=== PATIENT | male | born 1995 | race Caucasian/White ===

== ENCOUNTER 2020-10-22 14:09 | Emergency (ER) | payer OTHER, SELFPAY ==
[~2020-10-22] VITALS: Ht 167.6 cm; Wt 108.9 kg
[2020-10-22 14:15] VITALS: BP 122/85
--- NOTE | 2020-10-22 14:37 | NUR ---
Pt taken to bed 10.
--- NOTE | 2020-10-22 14:50 | NUR ---
25 Y male with c/o of SOB, chest pain, n/v, dysuria, myalise, fever/chills, and fatigue. Pt tested covid + on 10/17/20. Pt is not vacinated and has c/o of covid S/S since 10/12/20. Diminished breath sounds heard on lower lobes. S1/S2 heard upon assessment. Pt is also c/o of dysuira, lower back pain, and hesistancy for the past 2 months. PMH: sonia NKEliceo Addendum: 10/22/20 at 1546 by [email or web address] Pt also stated he smokes weed and does ketamine often
--- NOTE | 2020-10-22 15:15 | NUR ---
blood work, urine, covid ada, covid novel all collected bedside and handed to industrial laborer
--- NOTE | 2020-10-22 15:20 | NUR ---
xray bedside with pt
--- NOTE | 2020-10-22 15:33 | NUR ---
pt currently dry heaving bedside and has been provided with emesis bag
[2020-10-22 15:36] LABS: BASOPHILS % (AUTO) 0.7 % (0.0-2.0); EOSINOPHILS % (AUTO) 0.1 % (0.0-4.0); HEMATOCRIT 49.6 % (36-52); HEMOGLOBIN 16.9 g/dL (12.0-18.0); LYMPHOCYTES # (AUTO) 0.8 K/uL (2.0-11.5); LYMPHOCYTES % (AUTO) 15.6 % (20.5-51.1); MEAN CORPUSCULAR HEMOGLOBIN 34 pg (27-31); MEAN CORPUSCULAR HGB CONC 34 g/dL (33-37); MEAN CORPUSCULAR VOLUME 98.5 fL (80-94); MONOCYTES # (AUTO) 0.3 K/uL (0.8-1.0); MONOCYTES % (AUTO) 6.4 % (1.7-9.3); NEUTROPHILS # (AUTO) 4.1 K/uL (1.8-7.7); NEUTROPHILS % (AUTO) 77.2 % (42.2-75.2); PLATELET COUNT (AUTO) 130 K/uL (140-450); RED BLOOD CELL COUNT(AUTO) 5.03 MIL/uL (4.20-6.10); RED CELL DISTRIBUTION WIDTH 12.6 % (11.6-13.7); WHITE BLOOD COUNT (AUTO) 5.3 K/uL (4.8-10.8)
[2020-10-22] MEDS: NACL 0.9% 1,000 ML IV ONE (15:41)
[2020-10-22] MEDS: DEXAMETHASONE 4 MG/ML VIAL IVP ONE (15:42)
[2020-10-22] MEDS: KETOROLAC 30 MG/ML VIAL IVP ONE (15:43)
[2020-10-22] MEDS: ONDANSETRON 4 MG/2 ML VIAL IVP ONE (15:43)
[2020-10-22 15:44] LABS: APPEARANCE,URINE CLEAR (CLEAR); BILIRUBIN,URINE NEGATIVE (NEGATIVE); BLOOD, URINE NEGATIVE (NEGATIVE); COLOR,URINE YELLOW (YELLOW); LEUKOCYTE ESTERASE ,URINE NEGATIVE (NEGATIVE); NITRITE, URINE NEGATIVE (NEGATIVE); PH,URINE 5.5 (5.0-9.0); UGLUCOSE NEGATIVE (NEGATIVE)
[2020-10-22 15:47] LABS: C-REACTIVE PROTEIN QUANT 5.5 mg/dL (0.0-0.9)
[2020-10-22 15:52] LABS: ALBUMIN 4.5 g/dL (3.4-5.0); ANION GAP 14.9 (8-16); CARBON DIOXIDE 27.2 mmol/L (21-32); CREATININE 1.2 mg/dL (0.6-1.3); POTASSIUM 4.1 mmol/L (3.5-5.1); TOTAL BILIRUBIN 0.4 mg/dL (0.0-1.0)
[2020-10-22 16:08] LABS: LACTATE DEHYDROGENASE 334 U/L (85-227)
[2020-10-22] MEDS: ACETAMINOPHEN EXTRA STRENGTH 500 MG TAB PO ONE (16:25)
--- NOTE | 2020-10-22 16:29 | NUR ---
DR. SARKAR AT PT BEDSIDE FOR RE EVALUATION.
[2020-10-22] MEDS ORDERED: ALBU0.0912 IH (16:33)
[2020-10-22] MEDS ORDERED: PRED20TA5 PO (16:33)
[2020-10-22] MEDS ORDERED: AZIT250T3 PO (16:33)
[2020-10-22] MEDS ORDERED: IBUP-2213 PO (16:33)
[2020-10-22] MEDS ORDERED: BENZ-196 PO (16:33)
[2020-10-22 16:51] VITALS: BP 102/53
--- NOTE | 2020-10-22 16:52 | NUR ---
Patient discharged with v/s stable. Written and verbal after care instructions given and explained. Patient alert, oriented and verbalized understanding of instructions. Ambulatory with steady gait. All questions addressed prior to discharge. ID band removed. Patient advised to follow up with PMD. Rx of albuterol sulfate, zithromax, benzonatate, ibuprofen, and prednisone given. Patient educated on indication of medication including possible reaction and side effects. Opportunity to ask questions provided and answered.
--- NOTE | 2020-10-25 00:53 | NUR ---
Positive COVID 19 test results recived from Lab. Per lab copy of test results were given to Infection Control.
== END 2020-10-22 16:52 | disposition home or self-care (01) ==
LOC: MED 14:09
DX: U07.1 COVID-19 (principal); J12.82 Pneumonia due to coronavirus disease 2019
CPT/HCPCS: 36415; 36600; 71045; 80053; 81003; 82550; 82728; 82803; 83605; 83615; 83880; 84484; 85025; 85379; 86140; 87040; 87426; 93005; 96374; 96375; 99285; J1100; J1885; J2405; J7030; Q0092; U0003

== ENCOUNTER 2020-11-15 09:21 | Emergency (ER) | payer OTHER, SELFPAY ==
[~2020-11-15] VITALS: Ht 172.7 cm; Wt 131.5 kg
[~2020-11-15 09:21] MED LIST: ALBU0.0912 IH; AZIT250T3 PO; BENZ-196 PO; IBUP-2213 PO; PRED20TA5 PO
[2020-11-15 09:25] VITALS: BP 145/87
--- NOTE | 2020-11-15 09:29 | NUR ---
PT TO AWAIT IN TENT
--- NOTE | 2020-11-15 09:49 | NUR ---
ERMD EXAMINING PT IN TENT
--- NOTE | 2020-11-15 09:50 | NUR ---
25 Y/O MALE C/O TOOTHACHE XTODAY. PT STATES CONSTANT SHARP 10/10 PAIN. HAS NOT SEEN A DENTIST YET. PAIN HAS BEEN ONGOING FOR MONTHS, BEGAN WORSENING TODAY. STATES SWELLING, DENIES ANY BLEEDING OR DISCHARGE. MEDHX: LIZZIE PATE
[2020-11-15] MEDS ORDERED: BUPIVACAINE-MPF 0.25% 30 ML VIAL INJ ONE (09:55)
--- NOTE | 2020-11-15 10:04 | NUR ---
AMBULATED TO BED 10
[2020-11-15] MEDS ORDERED: BUPIVACAINE-MPF/EPI 0.25% 30 ML VIAL INJ ONE (10:15)
[2020-11-15] MEDS ORDERED: LIDOCAINE JELLY 2% 30 ML TUBE TP ONE (10:15)
--- NOTE | 2020-11-15 10:20 | NUR ---
PATIENT YELLING AND CURSING AT STAFF, KICKING OVER EM STAND, STATING "FUCK YOU YOU ARE NO ONE." STATING "JENNIFER BEEN WAITING PATIENTLY." SECURITY PAGED TO TALK TO PATIENT.
[2020-11-15] MEDS ORDERED: AMOX500C25 PO (11:01)
--- NOTE | 2020-11-15 11:19 | NUR ---
Patient discharged with v/s stable. Written and verbal after care instructions given and explained ABOUT TOOTH AVULSION. Patient alert, oriented and verbalized understanding of instructions. Ambulatory with steady gait. All questions addressed prior to discharge. ID band removed. Patient advised to follow up with PMD. Rx of AMOXICILLIN given. Patient educated on indication of medication including possible reaction and side effects. Opportunity to ask questions provided and answered.
== END 2020-11-15 11:19 | disposition home or self-care (01) ==
LOC: MED 09:21
DX: K08.89 Other specified disorders of teeth and supporting structures (principal); Z79.899 Other long term (current) drug therapy
CPT/HCPCS: 64400; 99284; J3490; 99283

== ENCOUNTER 2021-05-04 19:58 | Emergency (ER) | payer OTHER, SELFPAY ==
[~2021-05-04] VITALS: Ht 167.6 cm; Wt 136.1 kg
[~2021-05-04 19:58] MED LIST changes: +AMOX500C25 PO
[2021-05-04 20:10] VITALS: BP 157/90
--- NOTE | 2021-05-04 20:13 | NUR ---
TO LOBBY A/W BED AMBULATORY
[2021-05-04 20:45] LABS: BASOPHILS % (AUTO) 0.1 % (0.0-2.0); EOSINOPHILS # (AUTO) 0.3 K/uL (0-0.4); EOSINOPHILS % (AUTO) 1.8 % (0.0-4.0); HEMATOCRIT 47.6 % (36-52); HEMOGLOBIN 16.2 g/dL (12.0-18.0); LYMPHOCYTES # (AUTO) 0.6 K/uL (2.0-11.5); LYMPHOCYTES % (AUTO) 4.4 % (20.5-51.1); MEAN CORPUSCULAR HEMOGLOBIN 34 pg (27-31); MEAN CORPUSCULAR HGB CONC 34 g/dL (33-37); MEAN CORPUSCULAR VOLUME 99.4 fL (80-94); MONOCYTES # (AUTO) 0.6 K/uL (0.8-1.0); NEUTROPHILS # (AUTO) 12.6 K/uL (1.8-7.7); NEUTROPHILS % (AUTO) 89.7 % (42.2-75.2); PLATELET COUNT (AUTO) 242 K/uL (140-450); RED BLOOD CELL COUNT(AUTO) 4.79 MIL/uL (4.20-6.10); WHITE BLOOD COUNT (AUTO) 14.1 K/uL (4.8-10.8)
[2021-05-04 20:55] LABS: APPEARANCE,URINE CLEAR (CLEAR); BILIRUBIN,URINE 1+ (NEGATIVE); BLOOD, URINE NEGATIVE (NEGATIVE); LEUKOCYTE ESTERASE ,URINE NEGATIVE (NEGATIVE); NITRITE, URINE NEGATIVE (NEGATIVE); UGLUCOSE NEGATIVE (NEGATIVE)
[2021-05-04 21:04] LABS: ALBUMIN 4.9 g/dL (3.4-5.0); ANION GAP 14.5 (8-16); CARBON DIOXIDE 26.7 mmol/L (21-32); CREATININE 0.9 mg/dL (0.6-1.3); POTASSIUM 4.2 mmol/L (3.5-5.1)
[2021-05-04 21:07] LABS: COLOR,URINE AMBER (YELLOW)
[2021-05-04] MEDS ORDERED: ONDANSETRON 4 MG/2 ML VIAL IVP ONE (21:15)
[2021-05-04] MEDS ORDERED: KETOROLAC 15 MG/ML VIAL IVP ONE (21:15)
--- NOTE | 2021-05-04 22:05 | NUR ---
CALL TO BED NO RESPONSE.HE LEAVE HOME. PATIENT LEFT WITHOUT BEING SEEN BY DR. RICHARDS. NO FURTHER CARE PROVIDED FOR PATIENT.
== END 2021-05-04 22:05 | disposition left against medical advice (07) ==
LOC: MED 19:58
DX: R10.13 Epigastric pain (principal); R68.83 Chills (without fever); Z79.899 Other long term (current) drug therapy
CPT/HCPCS: 36415; 80053; 81003; 83690; 85025; 99283

== ENCOUNTER 2022-06-24 08:49 | Inpatient (IN) | payer OTHER ==
[~2022-06-24] VITALS: Ht 172.7 cm; Wt 90.7 kg
[2022-06-24 09:52] VITALS: BP 132/76
--- NOTE | 2022-06-24 09:53 | NUR ---
PATIENT AMBULATED TO BED 8.
--- NOTE | 2022-06-24 10:06 | NUR ---
PT WAS SITTING COMFORTABLY IN THE WAITING AREA AND STARTS CURSING AND CALLING NAMES AT THE REGISTRATION LADY WALKING UP TO THE COUNTER WITH STEADY GAIT NO GRIMACING OR GUARDING ABDOMEN "I'M GONNA FUCKING ELOINA EVERYBODY, I WANT TO TALK TO THE MULTIPLE DRUM SANDER OF THIS HOSPITAL RIGHT NOW!" CAUL DRESSER HAD INFORMED PT THAT WE WERE GETTING THE BED CLEANED FOR HIM BEFORE WE BRING HIM IN
[2022-06-24] MEDS ORDERED: ONDANSETRON 4 MG ODT PO ONE (10:20)
[2022-06-24] MEDS ORDERED: FAMOTIDINE 20 MG TAB PO ONE (10:20)
[2022-06-24] MEDS ORDERED: ALUMINUM HYD/MAG/SIMETHICONE 30 ML UDC PO ONE (10:20)
[2022-06-24] MEDS ORDERED: DICYCLOMINE 10 MG CAP PO ONE (10:20)
--- NOTE | 2022-06-24 10:25 | NUR ---
HAD BEEN GIVEN A SPECIMEN CUP FOR A URINE SAMPLE, PT REPLIED "WHAT DO YOU NEED MY URINE FOR? NO NEED FOR A URINE TEST"
[2022-06-24 10:45] LABS: BASOPHILS # (AUTO) 0.1 K/uL (0.00-0.22); BASOPHILS % (AUTO) 0.6 % (0.0-2.0); EOSINOPHILS # (AUTO) 0.2 K/uL (0-0.4); EOSINOPHILS % (AUTO) 2.7 % (0.0-4.0); HEMATOCRIT 44.8 % (36-52); HEMOGLOBIN 15.3 g/dL (12.0-18.0); LYMPHOCYTES # (AUTO) 1.2 K/uL (2.0-11.5); LYMPHOCYTES % (AUTO) 14.8 % (20.5-51.1); MEAN CORPUSCULAR HEMOGLOBIN 34 pg (27-31); MEAN CORPUSCULAR HGB CONC 34 g/dL (33-37); MONOCYTES # (AUTO) 0.8 K/uL (0.8-1.0); MONOCYTES % (AUTO) 9.3 % (1.7-9.3); NEUTROPHILS # (AUTO) 6.1 K/uL (1.8-7.7); NEUTROPHILS % (AUTO) 72.6 % (42.2-75.2); PLATELET COUNT (AUTO) 203 K/uL (140-450); RED BLOOD CELL COUNT(AUTO) 4.52 MIL/uL (4.20-6.10); RED CELL DISTRIBUTION WIDTH 13.1 % (11.6-13.7); WHITE BLOOD COUNT (AUTO) 8.4 K/uL (4.8-10.8)
[2022-06-24 11:08] LABS: ANION GAP 9.1 (8-16); CARBON DIOXIDE 31.7 mmol/L (21-32); POTASSIUM 3.8 mmol/L (3.5-5.1); TOTAL BILIRUBIN 0.5 mg/dL (0.0-1.0)
--- NOTE | 2022-06-24 11:26 | NUR ---
Patient being evaluated by physician at bedside.
[2022-06-24] MEDS ORDERED: NACL 0.9% 1,000 ML IV ONE (11:50)
[2022-06-24] MEDS ORDERED: POTASSIUM CHLORIDE 10 MEQ TABER PO PRN (12:00)
[2022-06-24] MEDS ORDERED: ACETAMINOPHEN 325 MG TAB PO PRN (12:00)
[2022-06-24] MEDS ORDERED: ONDANSETRON 4 MG/2 ML VIAL IVP PRN (12:00)
[2022-06-24] MEDS ORDERED: MORPHINE SULFATE 2 MG/ML SYR IVP PRN (12:00)
[2022-06-24] MEDS ORDERED: HYDROcodone/APAP 5/325 MG 1 TAB TAB PO PRN (12:00)
[2022-06-24] MEDS ORDERED: MAGNESIUM OXIDE 400 MG TAB PO PRN (12:00)
[2022-06-24] MEDS ORDERED: LACTATED RINGERS 1,000 ML IV SCH (12:00)
[2022-06-24] MEDS ORDERED: MAG SULF 2000 MG/WATER PREMIX 50 ML IV PRN (12:00)
[2022-06-24] MEDS ORDERED: KCL 20 MEQ IN 100 mL PREMIX 200 ML IV PRN (12:00)
--- NOTE | 2022-06-24 12:23 | NUR ---
US BEDSIDE WITH TP.
--- NOTE | 2022-06-24 13:17 | NUR ---
PT GOT ROOM IN M/S 120B. PT WAS W/C'D TO ROOM. REPORT ENDOSED TO RN/MS BEDSIDE.
[2022-06-24 13:18] VITALS: BP 124/75
--- NOTE | 2022-06-24 13:26 | NUR ---
Admission of a 27 year old male from home with a diagnosis of pancreatitis under the care of Doctor Tylor M.D.
[2022-06-24 13:59] LABS: BARBITURATE, URINE NEGATIVE ng/ml (NEG <=200)
[2022-06-24 14:00] LABS: BENZODIAZEPINE, URINE POSITIVE ng/mL (NEG <=200)
[2022-06-24 14:01] LABS: CANNABINOID, URINE POSITIVE ng/mL (NEG <=50); COCAINE, URINE POSITIVE ng/mL (NEG <=300); OPIATE, URINE NEGATIVE ng/mL (NEG <=2000); PHENCYCLIDINE SCREEN,URINE NEGATIVE ng/mL (NEG <=25)
--- NOTE | 2022-06-24 14:46 | NUR ---
Patient request to leave hospital because he says he has a call to leave against medical advice and go to a workman comp appointment. Intact 22 gauge left antecubital intravenous line removal by charge nurse. Per charge nurse Doctor Snider would be paged.
--- NOTE | 2022-06-24 15:00 | NUR ---
PATIENT YELLING THAT HE WANTS TO GO AMA, PRINT PAPER AND WENT TO THE ROOM TO REMOVED IV, PATIENT IS CURSING AND SAYING THAT NURSES HERE ARE INCOMPETENT. IV REMOVED AND PUT GAUZE, PATIENT IN A HURRY TO WALK AND IV SITE IS BLEEDING, HE CURSED AND TELLING ME TO CALL THE TOP LIFT TRIMMER, I TOLD HIM LET ME CALL THE [employer] INTERACTION DESIGNER AND THE HEEL TOP LIFT SPLITTER FIRST, HE DOESN'T WANT IT. HE ASKED FOR HIS MEDICAL RECORDS AND I TOLD HIM THAT HE NEEDS TO REQUEST FOR IT. ALTAF HIS NURSE ACCOMPANIED HIM TO THE LOBBY, HE SAID HE WILL GO TO ER AND CONFRONT THE ADMITTING THERE AND WILL ELOINA EVERYBODY.
--- NOTE | 2022-06-24 15:08 | NUR ---
PATIENT SIGNED AMA PAPERWORK, BUT REFUSED TO ALLOW FACILITY TO KEEP COPY OF ORIGINAL OR MAKE A COPY AND TOOK IT WITH HIM.
[2022-06-25] MEDS ORDERED: ENOXAPARIN 40 MG/0.4 ML SYR SUBQ SCH (09:00)
== END 2022-06-24 16:18 | disposition left against medical advice (07) | DRG 282 ==
LOC: MED 08:49 → MMU 12:02 → MTU 12:50
PROVIDERS: ADMIT Internal Medicine; ATTEND Internal Medicine
DX: K85.90 Acute pancreatitis without necrosis or infection, unspecified (principal); F12.90 Cannabis use, unspecified, uncomplicated; Z20.822 Contact with and (suspected) exposure to COVID-19
CPT/HCPCS: 36415; 76705; 80053; 80305; 83690; 85025; 96360; 99285; G0482; Q0092; Q0162

== ENCOUNTER 2023-11-10 04:45 | Emergency (ER) | payer OTHER ==
[~2023-11-10] VITALS: Ht 170.2 cm; Wt 113.4 kg
[2023-11-10 04:55] VITALS: BP 138/74; PULSE 102; RESP 16; TEMP 97.3; O2SAT 100
[2023-11-10 05:10] VITALS: O2SAT 99
[2023-11-10] MEDS ORDERED: AMOX500C25 PO (05:11)
[2023-11-10] MEDS: DEXAMETHASONE 4 MG/ML VIAL PO ONE (05:21)
[2023-11-10] MEDS: ACETAMINOPHEN EXTRA STRENGTH 500 MG TAB PO ONE (05:25)
[2023-11-10] MEDS: KETOROLAC 30 MG/ML VIAL IM ONE (05:26)
[2023-11-10] MEDS: AMOXICILLIN 500 MG CAP PO ONE (05:35)
[2023-11-10 05:46] VITALS: PULSE 97; RESP 14; TEMP 99.1; O2SAT 98
== END 2023-11-10 05:46 | disposition home or self-care (01) ==
LOC: MED 04:45
DX: J02.9 Acute pharyngitis, unspecified (principal); Z79.899 Other long term (current) drug therapy
CPT/HCPCS: 87081; 96372; 99284; J1100; J1885